=== PATIENT | female | born 1985 | race Caucasian/White ===

== ENCOUNTER 2017-01-14 05:38 | Inpatient (IN) | payer BC ==
[2017-01-14] MEDS ORDERED: Sodium Chloride 0.9% 10 ML Syringe FLUSH PRN (06:15)
[2017-01-14] MEDS ORDERED: Nalbuphine 10 MG/1 ML Vial IM PRN (06:15)
[2017-01-14] MEDS ORDERED: Methylergonovine 0.2 MG/1 ML Amp IM PRN (06:15)
[2017-01-14] MEDS ORDERED: Misoprostol 400 MCG (4 X 100 MCG TAB) RECTAL PRN ×2 (06:15→16:38)
[2017-01-14] MEDS ORDERED: Carboprost Tromethamine 250 MCG/1 ML Amp IM PRN ×2 (06:15→16:38)
[2017-01-14] MEDS ORDERED: Ondansetron 4 MG/2 ML SDV IV PRN (06:15)
[2017-01-14] MEDS ORDERED: Lidocaine 1% 30 ML SDV INJECT PRN (06:15)
[2017-01-14] MEDS ORDERED: Lactated Ringers 500 ML IV ONE (06:15)
[2017-01-14] MEDS ORDERED: Oxytocin/Normal Saline 30 UNIT/500 ML BAG IV SCH (06:18)
[2017-01-14] MEDS: Lactated Ringers 1,000 ML IV SCH ×2 (06:37→13:58)
--- NOTE | 2017-01-14 08:19 | HP ---
SUBJECTIVE: A 31-year-old, 4, para 3-0-0-3, currently at 39 and 1/7 weeks based on last menstrual period and 7-week ultrasound, reports to Labor and Delivery this morning for induction of labor because of history of prior macrosomic infant. Reports that she has been doing well through the night other than not sleeping well because being nervous about her induction. Good movement. No leakage of fluid or vaginal bleeding. No headaches or chest pain. No blurry vision. No shortness of breath. No change in her swelling. No diarrhea or constipation. No unusual symptoms to report at this time. OBSTETRICAL HISTORY: 1. On 08/19/2006; 40 weeks gestation, female infant, vacuum-assisted vaginal delivery. Name is Adrian. weight 3997 g with scores of 9 and 9. No complications or stitches were required. Delivered by Dr. hCadwick. 2. On 05/29/2008; 39 weeks 6 days' gestation, male , spontaneous vaginal delivery. His name is Artur. He weighed 4139 g, scores of 8 and 9. It was a rapid uncomplicated delivery. Dr. Goff delivered for Dr. Chadwick. 3. On 07/19/2013; 38 weeks 2 days gestation, male , vaginal spontaneous delivery. Named Michael. weight 4337 g, male . Delivered by Dr. Saul for Dr. Chadwick. PERTINENT LABORATORY DATA: Blood type O positive. Antibody screen negative. Rubella immune. Syphilis negative. Hepatitis B negative. HIV negative. One- hour glucose tolerance test of 145. The patient is monitoring her sugars and managing with diet. Reports all sugars are in the low 100. Gonorrhea and chlamydia negative. Hepatitis C negative. Group B strep negative. Quad screen negative. IMMUNIZATIONS: She did receive her Tdap and flu vaccine this and plans on breast feeding. PAST MEDICAL HISTORY: 1. Carpal tunnel syndrome. 2. Depression. 3. Obesity. 4. Some chronic back pain. PAST SURGICAL HISTORY: 1. Laparoscopic cholecystectomy in 2010. 2. [place] teeth in 2016. SOCIAL HISTORY: She is to Celio. They have 3 children together, 2 boys and 1 girl. 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 Celio works at [employer] in [place]. They do not smoke. FAMILY HISTORY: Father with depression, hypertension, and schizophrenia. Mother with depression, high cholesterol, and celiac disease. Maternal grandfather with leukemia, and a half sister with diabetes which did essentially resolve after gastric bypass surgery. MEDICATIONS: 1. Vistaril recently started 25 mg p.o. as needed for anxiety. 2. vitamins 1 daily. ALLERGIES: No known drug allergies. REVIEW OF SYSTEMS: As outlined above under the history of present illness. No fever or chills. No nausea or vomiting. No diarrhea or constipation. No new skin rashes. No numbness or tingling. No blurry vision or headaches. PHYSICAL EXAMINATION: Vital Signs: Initial blood pressure 140/67, pulse of 124, temperature of 96.7. Recheck 106/65, and a pulse of 110. HEENT: Grossly unremarkable. Neck: Supple without adenopathy. Heart: Regular without murmur. Lungs: Clear to auscultation bilaterally. Abdomen: Soft without masses. Fundal height is greater than dates and approximately 40 to 41 cm. heart tones currently tracing at 150 beats per minute at baseline with moderate cjrz-em-[id number] variability. No accelerations noted as of yet. Contractions only about every 10 to 15 minutes where she denies feeling. Cervix not examined at this time. Last check in the office, she was 4 cm dilated, 75% effaced, and high. Extremities: Trace edema. No erythema or tenderness. LABORATORY DATA: Currently pending. ASSESSMENT: 1. 4, para 3-0-0-3, at 39 and 1/7 weeks gestation based on LMP and 7- week ultrasound. 2. History of macrosomic infants. 3. Blood type O positive. Rubella immune. Group B strep negative. 4. Obesity. 5. Depression. 6. History of carpal tunnel syndrome. PLAN: The patient has been admitted to the hospital for induction of labor. We will start with Pitocin as soon as we have a reactive tracing and then anticipate performing artificial rupture of membranes to help move things along. Be anticipating vaginal delivery. The patient's questions have been answered. [facility] /[id number]
--- NOTE | 2017-01-14 12:37 | PN ---
SUBJECTIVE: The patient reports feeling her contractions now, and feels like they are getting a little bit stronger. No specific pelvic pressure. movement continues to be good. No leakage of fluid or bleeding yet. OBJECTIVE: Vital Signs: Blood pressure 125/67, pulse of 93. heart tones tracing at 135 beats per minute with moderate wmge-[id number] variability. No accelerations on the current strip that I am looking at, but she was having nice accelerations earlier. [place] showing contractions about every 3 minutes on average to every 4. Cervix is 4 cm dilated, 80% effaced, and -2 station. Bag of water palpated and ruptured with Amnio Hook, and return of clear fluid noted. ASSESSMENT: 1. 4, para 3-0-0-3. 2. A 39 and 1/7 weeks . 3. History of macrosomic infant. PLAN: Continue with induction at this time. We are anticipating vaginal delivery later on today. Pain management options will be open depending on how the baby is doing and what she decides she wants to do in labor. Her questions have been answered. [facility] /[id number]
[2017-01-14] MEDS ORDERED: fentaNYL 100 MCG/2 ML SDV ONE (12:56)
--- NOTE | 2017-01-14 13:33 | PCM.SN ---
- Free Text/Narrative Note: called to provide labor pain relief via intrathecal for this patient. After chart reviewed, consent signed, and npo status verified, proceeded. With patient in sitting position, sterile prep/drape. Skin wheal at L3-4 with 1% lidocaine. LPX1 at L3-4 with 24g pencan spinal needle. Positive, clear, free flowing CSF, no heme, no paresthesia. Then 6mg mpf hyperbaric spinal 0.75% marcaine, 20mcg sufenta, 30mcg fentanyl, 0.4ml preservative free normal saline, plus epi wash intrathecally. Pt on left lateral for around 3-4 minutes, then right lateral for the same. Block to around T6. Maternal B/P and FHT's remained stable , and patient reported pain relief with subsequent contractions.
[2017-01-14] MEDS ORDERED: Benzocaine/Menthol 20%-0.5% Spray 56 GM Canister TOP PRN (16:38)
[2017-01-14] MEDS ORDERED: Simethicone 80 MG Tab.Chew PO PRN (16:38)
[2017-01-14] MEDS: Ferrous Sulfate 325 MG Tab PO SCH (18:36)
[2017-01-14] MEDS: Docusate Sodium 100 MG Cap PO PRN ×2 (18:36→21:35)
[2017-01-14] MEDS: Ibuprofen 800 MG Tab PO PRN (18:36)
[2017-01-15] MEDS: Ibuprofen 800 MG Tab PO PRN ×3 (05:27→21:20)
[2017-01-15] MEDS: Prenatal Multivitamin with Calcium/Folic Acid/Iron Tab PO SCH (08:47)
[2017-01-15] MEDS: Ferrous Sulfate 325 MG Tab PO SCH ×2 (08:47→17:06)
[2017-01-15] MEDS: Docusate Sodium 100 MG Cap PO PRN ×2 (08:47→21:21)
[2017-01-15] MEDS: Acetaminophen 325 MG Tab PO PRN ×2 (08:48→17:06)
--- NOTE | 2017-01-15 09:21 | PN ---
DATE: 01/15/2017 SUBJECTIVE: day #1. Overall, doing well, has some various aches and pains as would be expected, nothing unusual. Reports that she is passing some blood clots and small gushes of blood when she gets up to go to the bathroom. Otherwise, bleeding has been moderate. No unusual leakage or drainage. No headaches or blurry vision. No chest pain or shortness of breath. seems to be going fairly well. She denies other concerns at this time. OBJECTIVE: Vital Signs: Temperature is 97.5, pulse 86, blood pressure 104/60, respiratory rate of 16. Heart: Regular without obvious murmur. Lungs: Clear to auscultation bilaterally. Abdomen: Soft. Fundus is firm and below the umbilicus. Bowel sounds are positive. Extremities: Trace edema. No erythema or tenderness noted. LABORATORY DATA: Hemoglobin is down to 10.6 from a previous 10.8. Remainder is unremarkable. ASSESSMENT: 1. 4, now para 4-0-0-4, status post spontaneous vaginal delivery without complications yesterday. 2. History of depression. 3. Anemia of . 4. Delivery of macrosomic . PLAN: Anticipate continued normal cares and discharge home tomorrow. Continue support. The patient's questions have been answered. [facility] /[id number] MTDVivian
--- NOTE | 2017-01-15 09:21 | DEL ---
DATE: 01/14/2017 PRE-PROCEDURE DIAGNOSES: 1. A 39 and 1/7 weeks intrauterine based on last menstrual period and 7-week ultrasound. 2. 4, para 3-0-0-3. 3. History of macrosomia x3. 4. Obesity. 5. Blood type O positive, rubella immune, and group B strep negative. 6. Depression. 7. Bilateral ovarian cyst history. 8. History of carpal tunnel syndrome. 9. Anemia of . POSTPROCEDURE DIAGNOSES: 1. A 39 and 1/7 weeks intrauterine based on last menstrual period and 7-week ultrasound. 2. 4, para 3-0-0-3. 3. History of macrosomia x3. 4. Obesity. 5. Blood type O positive, rubella immune, and group B strep negative. 6. Depression. 7. Bilateral ovarian cyst history. 8. History of carpal tunnel syndrome. 9. Anemia of . 10.Spontaneous vaginal delivery of viable macrosomic female infant in asynclitic presentation. BRIEF HISTORY: The patient is a 31-year-old female, admitted to the hospital with the above listed diagnoses, induced with Pitocin and followed with artificial rupture of membranes. She ended up having an intrathecal for pain management and has not had anything for pain with her prior deliveries. She was in stage I for approximately 6 hours and needed to push for about 1 hour. In the past, she has only pushed through maybe 6 contractions and after baby was delivered, we decided this was a large part due to the baby being asynclitic, and she tolerated labor quite well. monitoring strip was always reassuring and she had a very good labor pattern. DELIVERY DETAILS: With the patient in Thad position, she delivered a viable female over intact perineum in the OA position with a left parietal lobe as the main presenting point. She was noted to have a nuchal cord after delivery of her head, and that was reduced bluntly. Then remainder of infant delivered. was dried and stimulated. Mouth and nose were then bulb suctioned because of copious fluid present. She was noted to have a terminal meconium stool. Once reassured she was doing well, she was placed up on mother's abdomen and three-vessel umbilical cord was doubly clamped and then cut. The placenta was then delivered by gentle cord traction and concomitant uterine massage, inspected and intact. Labia and vagina were inspected and she had some remarkable swelling, but no significant lacerations. Did not need any repairs. COMPLICATIONS: None. ESTIMATED BLOOD LOSS: 200 mL. FINDINGS: Viable female infant, Apgars scores of 9 and 9. Weight 3930 g, 8 pounds 11 ounces in asynclitic presentation. DISPOSITION: Mother and baby to stay in the room at this time for cares. [facility] /[id number] MTDD
[2017-01-15] MEDS ORDERED: fentaNYL 100 MCG/2 ML SDV ITHECAL ONE (16:48)
[2017-01-16] MEDS: Ibuprofen 800 MG Tab PO PRN (07:46)
[2017-01-16] MEDS: Prenatal Multivitamin with Calcium/Folic Acid/Iron Tab PO SCH ×2 (07:46→09:16)
[2017-01-16] MEDS: Acetaminophen 325 MG Tab PO PRN (07:46)
[2017-01-16] MEDS: Docusate Sodium 100 MG Cap PO PRN (07:46)
[2017-01-16] MEDS: Ferrous Sulfate 325 MG Tab PO SCH (07:46)
[2017-01-16 08:10] VITALS: BP 121/66
--- NOTE | 2017-01-18 10:39 | DISCH ---
ADMITTING DIAGNOSES: 1. A 39 and 1/7 weeks. 2. 4, para 3-0-0-3. 3. History of macrosomia x3. 4. Blood type O positive. Rubella immune. Group B strep negative. 5. Depression. 6. Obesity. 7. Bilateral ovarian cyst. 8. Carpal tunnel syndrome. 9. Anemia of . DISCHARGE DIAGNOSES: 1. A 39 and 1/7 weeks. 2. 4, para 4-0-0-4. 3. History of macrosomia x3. 4. Blood type O positive. Rubella immune. Group B strep negative. 5. Depression. 6. Obesity. 7. Bilateral ovarian cyst. 8. Carpal tunnel syndrome. 9. Anemia of . 10.Status post vaginal delivery without complications. 11.Mild asynclitic presentation of the . BRIEF HISTORY: A 31-year-old female, admitted to the hospital for induction of labor performed with Pitocin and artificial rupture of membranes. She was brought in because of a history of macrosomia. See admission history and physical for full details. Labor was progressing well and she elected to have an intrathecal for pain management, and when she was complete she was pushing, and pushing efforts were very good, but she had made a slower progress than average, and at delivery we decided that was primarily because the baby was mildly asynclitic; however, she may have also had some decreased sensation because of her intrathecal. Stage I was about 6 hours, stage II 1 hour, and stage III was only about 3 minutes. HOSPITAL COURSE: Since delivery she has done well. She has been ambulating, tolerating regular diet. No chest pain or shortness of breath. Passing flatus, has not had a bowel movement. Voiding without difficulties. Bonding well with her baby, and breast-feeding is going well. She does not have any other concerns. DISCHARGE CONDITION: Good. PHYSICAL EXAMINATION: Vital Signs: Temperature is 97.8, pulse 94, blood pressure 121/66, respiratory rate of 16, and O2 saturations 100% on room air. Heart: Regular without murmur. Lungs: Clear bilaterally. Abdomen: Soft, nontender. Fundus firm and below the umbilicus. Extremities: Trace edema. No erythema or tenderness noted. LABORATORY DATA: Admission hemoglobin 10.8, discharge 10.6. DISPOSITION: Home with family. MEDICATIONS: 1. Ibuprofen and Tylenol as needed for pain. 2. Colace 100 mg twice daily as needed for constipation. 3. Iron 325 mg twice daily for 4 weeks. FOLLOWUP: Follow-up plan. She will be seen in the office in 6 weeks for routine exam. DISCHARGE INSTRUCTIONS: Routine post vaginal delivery instructions provided including pelvic rest for 6 weeks. No heavy lifting. Return to the hospital or clinic if she has any difficulties with fever, foul-smelling drainage, discharge, excessive bleeding, depression, or other complications. The patient has a history of depression and understands depression can be substantial and remarkable, so she needs to come in for evaluation if she has any concerns. Questions were answered and she was happy with the plan. [facility] /[id number] MTDD
== END 2017-01-16 10:20 | disposition home or self-care (01) | DRG 560 ==
LOC: DL.OBCHECK 05:38 → DL.OB 05:39 → UNDOADMOB 05:39 → OBSVTOIN 16:27 → DL.OB 16:27 → OBSVTOIN 16:37 → INTOOBSV 16:37 → UNDODISIN 01-16 10:20
PROVIDERS: ADMIT Family Medicine; ATTEND Family Medicine
PROC: 10E0XZZ Delivery of Products of Conception, External Approach (ICD-10-PCS; principal; 2017-01-14)
PROC: 10907ZC Drainage of Amniotic Fluid, Therapeutic from Products of Conception, Via Natural or Artificial Opening (ICD-10-PCS; 2017-01-14)
PROC: 3E033VJ Introduction of Other Hormone into Peripheral Vein, Percutaneous Approach (ICD-10-PCS; 2017-01-14)
PROC: 4A1HXCZ Monitoring of Products of Conception, Cardiac Rate, External Approach (ICD-10-PCS; 2017-01-14)
DX: O36.63X0 Maternal care for excessive fetal growth, third trimester, not applicable or unspecified (principal); O69.81X0 Labor and delivery complicated by cord around neck, without compression, not applicable or unspecified; O99.214 Obesity complicating childbirth; O99.344 Other mental disorders complicating childbirth; F32.9 Major depressive disorder, single episode, unspecified; O99.02 Anemia complicating childbirth; D64.9 Anemia, unspecified; Z3A.39 39 weeks gestation of pregnancy; Z37.0 Single live birth
CPT/HCPCS: 36415; 82962; 85027; A9270-GY; J2405; J2590; J3010; J7120